=== PATIENT | female | born 1940 | race Caucasian/White ===

== ENCOUNTER 2017-01-26 09:37 | Inpatient (IN) | payer MEDICARE ==
[~2017-01-26] VITALS: Ht 160 cm; Wt 59.7 kg
[2017-01-26] MEDS ORDERED: CEFEPIME 2GM/50 ML (PMX) 50 ML IVPB STA (09:46)
[2017-01-26] MEDS ORDERED: SOD CHLORIDE 0.9% 1,000 ML IV STA ×2 (09:46)
[2017-01-26] MEDS ORDERED: VANCOMYCIN 1 GM (PMX) 250 ML IVPB ONE (10:00)
[2017-01-26] MEDS ORDERED: CITA-104 PO (10:23)
[2017-01-26 10:26] LABS: ADD SCAN DIFF NO
[2017-01-26] MEDS ORDERED: CLON0.5T4 PO (10:26)
[2017-01-26] MEDS ORDERED: ZOF8 PO (10:26)
[2017-01-26] MEDS ORDERED: OLAN2.5T4 PO (10:27)
[2017-01-26] MEDS ORDERED: PROC5TAB9 PO (10:28)
[2017-01-26] MEDS ORDERED: LITH150C6 PO (10:28)
[2017-01-26] MEDS ORDERED: LATA2.5D9 BOTH EYES (10:29)
[2017-01-26] MEDS ORDERED: DEXA4TAB PO (10:30)
[2017-01-26] MEDS ORDERED: UDLOM PO (10:30)
[2017-01-26] MEDS ORDERED: FAMO20TA18 PO (10:32)
[2017-01-26 10:36] LABS: ADD UMIC NO; UR ASCORBIC ACID NEGATIVE (NEGATIVE); UR BILIRUBIN (Dip) NEGATIVE (NEGATIVE); UR BLOOD (Dip) NEGATIVE (NEGATIVE); UR CLARITY CLEAR (CLEAR); UR COLOR YELLOW (YELLOW); UR GLUCOSE (Dip) NEGATIVE (NEGATIVE); UR KETONES (Dip) TRACE mg/dL (NEGATIVE); UR LEUKOCYTE ESTERASE (Dip) NEGATIVE Leu/ul (NEGATIVE); UR NITRITE (Dip) NEGATIVE (NEGATIVE); UR SPECIFIC GRAVITY (Dip) 1.016 (1.003-1.030); UR TOTAL PROTEIN (Dip) NEGATIVE (NEGATIVE); UR UROBILINOGEN (Dip) NEGATIVE (NEGATIVE)
[2017-01-26 10:37] LABS: BASOPHILS % 0.2 % (0.0-2.0); EOSINOPHILS # 0.1 10^3/ul (0.0-0.5); EOSINOPHILS % 0.5 % (0.0-7.0); HEMATOCRIT 35.7 % (37.0-47.0); HEMOGLOBIN 12.6 g/dl (12.0-16.0); LYMPHOCYTES # 1.2 10^3/ul (0.8-2.9); LYMPHOCYTES % 6.8 % (15.0-51.0); MEAN CORPUSCULAR HEMOGLOBIN 29.4 pg (29.0-33.0); MEAN CORPUSCULAR HGB CONC 35.3 g/dl (32.0-37.0); MEAN CORPUSCULAR VOLUME 83.2 fl (82.0-101.0); MEAN PLATELET VOLUME 9.9 fl (7.4-10.4); MONOCYTE # 1.4 10^3/ul (0.3-0.9); MONOCYTES % 7.5 % (0.0-11.0); NEUTROPHIL # 15.4 10^3/ul (1.6-7.5); NEUTROPHILS % 84.2 % (39.0-77.0); PLATELET COUNT 191 10^3/UL (140-415); RED BLOOD COUNT 4.29 10^6/ul (4.20-5.40); WHITE BLOOD COUNT 18.3 10^3/ul (4.8-10.8)
[2017-01-26 10:50] LABS: ALBUMIN 3.9 g/dl (3.3-4.9); ALBUMIN/GLOBULIN RATIO 1.5; BILIRUBIN,INDIRECT 0.5 mg/dl (0-1.1); BILIRUBIN,TOTAL 0.5 mg/dl (0.2-1.3); CALCIUM 9.6 mg/dl (8.4-10.2); CREATININE 0.9 mg/dl (0.44-1.00); TOTAL PROTEIN 6.5 g/dl (6.1-8.1)
[2017-01-26 10:55] LABS: INR 1.04; PROTIME 13.6 Sec (12.2-14.2); PT RATIO 1.1
--- NOTE | 2017-01-26 10:57 | RADRPT ---
PROCEDURE: CT Brain without contrast. CLINICAL INDICATION: Sepsis TECHNIQUE: A CT of the brain was performed on a see multidetector CT scanner utilizing axial imagi ng from the skull base through the vertex without IV contrast. Multiplanar reformatted images were made. Images were reviewed on a PACS workstation. The CTDIvol is 42 mGy and the DLP is to 720 mGyc m. COMPARISON: None FINDINGS: There is mild to moderate age appropriate diffuse cerebral volume loss with sulcal and ventricular d ilatation. No discrete extra-axial fluid collection or masses seen. Ventricles are in the midline and of normal contour and configuration. There is preservation of normal anderson-white discrimination. Scattered focal of diminished attenuation are seen in the white matter of both cerebral hemisphere s. No associated mass effect is present. There is no intracranial hemorrhage. Trace fluid is seen layering in the left sphenoid sinus. IMPRESSION: Age-appropriate atrophy. Mild white matter disease compatible with chronic small vessel ischemia. No intracranial hemorrhage or mass. .Tom Saha MD, MD Date Time Electronically viewed and signed by .Tom Saha MD, MD on 01/26/2017 10:56 .A/
[2017-01-26] MEDS ORDERED: POTASSIUM CHLORIDE (SR) 20 MEQ TAB PO STA ×2 (10:59→22:56)
[2017-01-26] MEDS ORDERED: POTASSIUM CHLORIDE 250 ML IVPB ONE ×2 (11:00→23:00)
[2017-01-26 11:01] LABS: TROPONIN-I 0.031 ng/ml (0.00-0.12)
--- NOTE | 2017-01-26 11:11 | RADRPT ---
PROCEDURE: Chest x-ray CLINICAL INDICATION: Shortness of breath TECHNIQUE: Chest single view COMPARISON: None FINDINGS: There is right IJ Port-A-Cath. The heart is normal in size. The pulmonary vessels are normal in ca liber. The lungs are clear. The costophrenic angles are sharp. The visualized bony thorax is unre markable. IMPRESSION: No acute cardiopulmonary disease. Mild atherosclerotic aortic calcification Right IJ Port-A-Cath RPTAT: HH .Tobi Owen MD, Date Time Electronically viewed and signed by .Tobi Owen MD, on 01/26/2017 11:11 .W/
[2017-01-26] MEDS ORDERED: ONDANSETRON 4 MG INJ IV PRN ×2 (11:30→13:00)
[2017-01-26] MEDS ORDERED: ACETAMINOPHEN 325 MG TAB PO PRN ×2 (11:30→13:00)
[2017-01-26] MEDS ORDERED: clonAZEPAM 0.5 MG TAB PO ONE (12:00)
--- NOTE | 2017-01-26 12:20 | ERA ---
ER Documentation Chief Complaint Date/Time DATE: 01/26/17 TIME: 12:19 Chief Complaint PT BIB friend for complaint of weakness, decreased apetite and weakness. HPI Patient is a 76-year-old female with breast cancer who presents with diarrhea. The patient has had "too much chemo". She had her first and only chemotherapy on January 06. She is due for it again tomorrow. However she has had "serious diarrhea" since then. She lives alone. Her friend came to see her yesterday and she was unable to eat or get around the house. The friend called the oncologist who said that she was likely dehydrated and needed to go to the emergency department for admission. She admits to a subjective fever. She has had multiple falls. She has drainage from her left eye from glaucoma. Her primary doctor is Dr. Caro and her oncologist is Dr. Nelson. ROS All systems reviewed and are negative except as per history of present illness. Medications Home Meds Reported Medications Famotidine* (Famotidine*) 20 Mg Tablet, 20 MG PO QHS, #30 TAB 01/26/17 Diphenoxylate Hcl-Atropine* (Lomotil*) 5 Ml Soln, 5 ML PO Q6H Y for DIARRHEA, ML 01/26/17 Dexamethasone* (Dexamethasone*) 4 Mg Tablet, 4 MG PO BID Y for chemo nausea, TAB 01/26/17 Latanoprost (Xalatan) 2.5 Ml Drops, 1 DROP BOTH EYES QHS, #1 BOTTLE 01/26/17 Prochlorperazine* (Prochlorperazine*) 5 Mg Tablet, 5 MG PO Q6 Y for NAUSEA, TAB 01/26/17 [place] Carbonate* ([place] Carbonate*) 150 Mg Capsule, 450 MG PO QHS, CAP 01/26/17 Olanzapine* (Zyprexa*) 2.5 Mg Tablet, 2.5 MG PO DAILY, #30 TAB 01/26/17 Clonazepam* (Clonazepam*) 0.5 Mg Tablet, 0.5 MG PO QHS Y for ANXIETY, TAB 01/26/17 Ondansetron Hcl* (Zofran*) 8 Mg Tab, 8 MG PO Q8 Y for NAUSEA AND/OR VOMITING, TAB Aleternating dose during and after chemo 01/26/17 Citalopram Hydrobromide* (Citalopram Hydrobromide*) 40 Mg Tablet, 40 MG PO DAILY , #30 TAB 01/26/17 Allergies Allergies: Coded Allergies: No Known Allergy (Unverified , 01/26/17) PMhx/Soc History of Surgery: Yes (Port-A -Cath ) Anesthesia Reaction: No Hx Neurological Disorder: No Hx Respiratory Disorders: No Hx Cardiac Disorders: No Hx Psychiatric Problems: Yes (depression, anxiety) Hx Miscellaneous Medical Probl: Yes (glacoma, Breast CA s/p chemo) Hx Alcohol Use: No Hx Substance Use: No Hx Tobacco Use: No Smoking Status: Never smoker FmHx Family History: No diabetes Physical Exam Vitals Vital Signs Date Time Temp Pulse Resp B/P Pulse Ox O2 Delivery O2 Flow Rate FiO2 01/26/17 09:57 98.1 90 18 140/66 98 Physical Exam Const: Moderate distress Head: Atraumatic Eyes: Discharge from the left eye with crusting ENT: Normal External Ears, Nose and Mouth. Neck: Full range of motion..~ No meningismus. Resp: Clear to auscultation bilaterally Cardio: Regular rate and rhythm, no murmurs Abd: Soft, non tender, non distended. Normal bowel sounds Skin: No petechiae or rashes Back: No midline or flank tenderness Ext: No cyanosis, or edema Neur: Awake but confused and weak Result Diagram: 01/26/17 1005 01/26/17 1005 Results 24 hrs Laboratory Tests Test 01/26/17 10:05 01/26/17 10:15 White Blood Count 18.310^3/ul Red Blood Count 4.2910^6/ul Hemoglobin 12.6g/dl Hematocrit 35.7% Mean Corpuscular Volume 83.2fl Mean Corpuscular Hemoglobin 29.4pg Mean Corpuscular Hemoglobin Concent 35.3g/dl Red Cell Distribution Width 14.0% Platelet Count 78175^3/UL Mean Platelet Volume 9.9fl Neutrophils % 84.2% Lymphocytes % 6.8% Monocytes % 7.5% Eosinophils % 0.5% Basophils % 0.2% Nucleated Red Blood Cells % 0.0/100WBC Neutrophils # 15.410^3/ul Lymphocytes # 1.210^3/ul Monocytes # 1.410^3/ul Eosinophils # 0.110^3/ul Basophils # 0.010^3/ul Nucleated Red Blood Cells # 0.010^3/ul Prothrombin Time 13.6Sec Prothrombin Time Ratio 1.1 INR International Normalized Ratio 1.04 Activated Partial Thromboplast Time 24.0Sec Sodium Level 140mmol/L Potassium Level 2.0mmol/L Chloride Level 105mmol/L Carbon Dioxide Level 27mmol/L Anion Gap 10 Blood Urea Nitrogen 21mg/dl Creatinine 0.90mg/dl Glucose Level 101mg/dl Lactic Acid Level 0.7mmol/L Calcium Level 9.6mg/dl Total Bilirubin 0.5mg/dl Direct Bilirubin 0.00mg/dl Indirect Bilirubin 0.5mg/dl Aspartate Amino Transf (AST/SGOT) 22IU/L Alanine Aminotransferase (ALT/SGPT) 35IU/L Alkaline Phosphatase 87IU/L Troponin I 0.031ng/ml Total Protein 6.5g/dl Albumin 3.9g/dl Globulin 2.60g/dl Albumin/Globulin Ratio 1.50 Urine Color YELLOW Urine Clarity CLEAR Urine pH 6.0 Urine Specific [place] 1.016 Urine Ketones TRACEmg/dL Urine Nitrite NEGATIVEmg/dL Urine Bilirubin NEGATIVEmg/dL Urine Urobilinogen NEGATIVEmg/dL Urine Leukocyte Esterase NEGATIVELeu/ul Urine Hemoglobin NEGATIVEmg/dL Urine Glucose NEGATIVEmg/dL Urine Total Protein NEGATIVEmg/dl Current Medications Medications (Trade) Dose Ordered Sig/Mayte Route PRN Reason Start Time Stop Time Status Last Admin Dose Admin Cefepime HCl 50 ml @ 100 mls/hr ONCE STAT IVPB 01/26/17 09:46 01/26/17 10:15 DC 01/26/17 11:03 Vancomycin HCl 250 ml @ 125 mls/hr ONCE ONCE IVPB 01/26/17 10:00 01/26/17 11:59 DC 01/26/17 11:37 Sodium Chloride 1,000 ml @ 1,000 mls/hr Q1H STAT IV 01/26/17 09:46 01/26/17 10:45 DC 01/26/17 11:02 Sodium Chloride 1,000 ml @ 1,000 mls/hr Q1H STAT IV 01/26/17 09:46 01/26/17 10:45 DC 01/26/17 11:03 Potassium Chloride (KCl 40 MEQ/250 ML NS) 250 ml @ 62.5 mls/hr ONCE ONCE IVPB 01/26/17 11:00 01/26/17 14:59 01/26/17 11:23 Potassium Chloride (Klor-Con 20) 40 meq ONCE STAT PO 01/26/17 10:59 01/26/17 11:00 DC 01/26/17 11:13 Ondansetron HCl (Zofran Inj) 4 mg ER BRIDGE PRN IV NAUSEA AND/OR VOMITING 01/26/17 11:30 01/27/17 11:29 Acetaminophen (Tylenol Tab) 650 mg ER BRIDGE PRN PO MILD PAIN/FEVER 01/26/17 11:30 01/27/17 11:29 Clonazepam (Klonopin) 0.25 mg ONCE ONCE PO 01/26/17 12:00 01/26/17 12:01 DC Procedures/MDM EKG read by me: Rate/Rhythm: Regular rate and rhythm at a rate of 85 Intervals: Prolonged QTC Impression: Prolonged QTC without signs of ischemia Patient is a 76-year-old female with breast cancer presents with significant diarrhea. She was found to have leukocytosis as well as profound hypokalemia. The patient was given IV potassium as well as potassium by mouth. The patient will be admitted to the care of Dr. Kunz from the panel team to a telemetry bed. She was covered with broad-spectrum antibiotics as she is immunosuppressed from chemotherapy. She will be admitted to a telemetry bed. At this point I doubt sepsis. Cultures are pending. Departure Diagnosis: Primary Impression: Acute weakness Additional Impressions: Diarrhea Qualified Code: R19.7 - Diarrhea, unspecified type Leukocytosis Qualified Code: D72.829 - Leukocytosis, unspecified type Hypokalemia Condition: Serious MORRO MATIAS MD Jan 26, 2017 12:20
[2017-01-26] MEDS ORDERED: PROCHLORPERAZINE 5 MG TAB PO PRN (13:00)
[2017-01-26] MEDS ORDERED: HYDROCODONE/APAP (5/325) TAB PO PRN (13:00)
[2017-01-26] MEDS ORDERED: DEXAMETHASONE 4 MG TAB PO PRN (13:00)
[2017-01-26] MEDS ORDERED: NACL 0.9% 3 ML SYG IV SCH (13:00)
[2017-01-26] MEDS ORDERED: ONDANSETRON 4 MG TAB PO PRN ×2 (13:00)
[2017-01-26 14:00] VITALS: TEMP 98.6
--- NOTE | 2017-01-26 14:40 | HP ---
Date/Time of Note Date/Time of Note DATE: 01/26/17 TIME: 14:33 Assessment/Plan VTE Prophylaxis VTE Prophylaxis Intervention: SCD's Assessment/Plan Assessment/Plan 76 yo F with stage 3 breast Ca on chemo admitted for encephalopathy, diarrhea, hypokalemia. Suspect diarrhea 2/2 Pertuzumab and that encepheloapthy and hypokalemia are 2/2 diarrhea. PLAN #diarrhea: check CDiff given frequent healthcare contact if negative start immodium #hypokalemia: replete aggressively #dehydration: though Cr wnl, BUN slightly elevated judicious fluid replacement #anxiety: cont home meds dispo: SW consult for HH per daughters request general diet DVT prophx FULL CODE HPI/ROS Admit Date/Time Admit Date/Time Hx of Present Illness 76 yo F with stage 3 breast ca currently on chemo presents with c/o altered mental status and falling at home x 1 day in the setting of several weeks of diarrhea. Per discussion with family, pt has been having diarrhea since her chemo started. No dark stool or blood in stool. For the past 2 days has been taking in less PO. No nausea or vomitting. No chest pain or SOB. I contacted pt's oncologist Dr Meg Nelson ([phone]) who stated this was a common side effect of the Pertuzumab element of pt's chemo regimen. No fevers, no chills, no dysuria. Pt also with yellow drainage from L eye and sclera erythema PMH/Family/Social Past Medical History breast ca, currently on chemo anxiety glaucoma Social History lives alone in the community Smoking Status: Never smoker Exam/Review of Systems Vital Signs Vitals Vital Signs Date Time Temp Pulse Resp B/P Pulse Ox O2 Delivery O2 Flow Rate FiO2 01/26/17 14:00 98.6 87 18 132/69 98 Exam Exam agitated, afraid, sitting up in bed L eye with injected sclera and copious yellowish discharge, mild yellowish discharge to R eye tonopen used to check L eye pressure: 20 mm Hg no mrg lungs clear abd soft no rashes, +bruising no le edema responds to questions appropriately R chest port clean/dry/intact Labs Result Diagram: 01/26/17 1005 01/26/17 1005 Medications Medications Current Medications Potassium Chloride (KCl 40 MEQ/250 ML NS) 250 ml @ 62.5 mls/hr ONCE ONCE IVPB Last administered on 01/26/17t 11:23; Admin Dose 62.5 MLS/HR; Start 01/26/17 at 11:00; Stop 01/26/17 at 14:59 Ondansetron HCl (Zofran Tab) 4 mg Q6H PRN PO NAUSEA AND/OR VOMITING; Start at 13:00 Ondansetron HCl (Zofran Inj) 4 mg Q6H PRN IV NAUSEA AND/OR VOMITING; Start at 13:00 Acetaminophen (Tylenol Tab) 650 mg Q6H PRN PO PAIN LEVEL 1-3 OR FEVER; Start at 13:00 Acetaminophen/ Hydrocodone Bitart ([place] (5/325)) 1 tab Q6H PRN PO MODERATE PAIN LEVEL 4-6; Start 01/26/17 at 13:00 Enoxaparin Sodium (Lovenox) 40 mg DAILY SC ; Start 01/27/17 at 09:00 Citalopram Hydrobromide (Celexa) 40 mg DAILY PO ; Start 01/27/17 at 09:00 Clonazepam (Klonopin) 0.5 mg QHS PRN PO ANXIETY; Start 01/26/17 at 13:00 Dexamethasone (Decadron) 4 mg BID PRN PO chemo nausea; Start 01/26/17 at 13:00 Famotidine (Pepcid) 20 mg QHS PO ; Start 01/26/17 at 21:00 Latanoprost (Xalatan) 1 drop QHS BOTH EYES ; Start 01/26/17 at 21:00 [place] Carbonate ([place] Carbonate) 450 mg QHS PO ; Start 01/26/17 at 21:00 Olanzapine (Zyprexa) 2.5 mg DAILY PO ; Start 01/27/17 at 09:00 Ondansetron HCl (Zofran Tab) 8 mg Q8 PRN PO NAUSEA AND/OR VOMITING; Start 01/26 at 13:00 Prochlorperazine (Compazine) 5 mg Q6 PRN PO NAUSEA; Start 01/26/17 at 13:00 Procedures Procedures labs reviewed. UA benign K very low MARAH SALGADO MD Jan 26, 2017 14:40
[2017-01-26 15:11] VITALS: PULSE 82
[2017-01-26 15:37] VITALS: Ht 160 cm; Wt 59.7 kg
[2017-01-26 16:38] VITALS: PULSE 84
[2017-01-26 16:42] VITALS: BP 133/60; RESP 19
[2017-01-26 19:48] VITALS: BP 134/60; RESP 19
[2017-01-26] MEDS: clonAZEPAM 0.5 MG TAB PO PRN (20:40)
[2017-01-26] MEDS: FAMOTIDINE 20 MG TAB PO SCH (20:40)
[2017-01-26 20:46] VITALS: PULSE 87
[2017-01-26] MEDS: LATANOPROST 0.005% 2.5 ML OPH BOTH EYES SCH (21:00)
[2017-01-26 22:31] LABS: CALCIUM 8.4 mg/dl (8.4-10.2); CREATININE 0.84 mg/dl (0.44-1.00)
[2017-01-26] MEDS: LITHIUM CARBONATE 150 MG CAP PO SCH (22:33)
[2017-01-26 22:40] LABS: POTASSIUM 2.3 mmol/L (3.5-5.1)
[2017-01-27] VITALS (11 sets, daily range): BP systolic 121–145; BP diastolic 58–77; PULSE 60–90; RESP 18–20
[2017-01-27] MEDS: LATANOPROST 0.005% 2.5 ML OPH BOTH EYES SCH ×2 (00:33→21:17)
[2017-01-27 07:53] LABS: ADD SCAN DIFF NO
[2017-01-27 08:02] LABS: BASOPHILS % 0.2 % (0.0-2.0); EOSINOPHILS # 0.2 10^3/ul (0.0-0.5); EOSINOPHILS % 1.1 % (0.0-7.0); HEMATOCRIT 35.1 % (37.0-47.0); HEMOGLOBIN 12.1 g/dl (12.0-16.0); LYMPHOCYTES # 0.9 10^3/ul (0.8-2.9); LYMPHOCYTES % 5.7 % (15.0-51.0); MEAN CORPUSCULAR HEMOGLOBIN 28.8 pg (29.0-33.0); MEAN CORPUSCULAR HGB CONC 34.5 g/dl (32.0-37.0); MEAN CORPUSCULAR VOLUME 83.6 fl (82.0-101.0); MEAN PLATELET VOLUME 9.9 fl (7.4-10.4); MONOCYTE # 1.3 10^3/ul (0.3-0.9); MONOCYTES % 7.8 % (0.0-11.0); NEUTROPHIL # 13.8 10^3/ul (1.6-7.5); NEUTROPHILS % 83.9 % (39.0-77.0); PLATELET COUNT 163 10^3/UL (140-415); RED CELL DISTRIBUTION WIDTH 14.5 % (11.5-14.5); WHITE BLOOD COUNT 16.4 10^3/ul (4.8-10.8)
[2017-01-27 08:15] LABS: CALCIUM 9.4 mg/dl (8.4-10.2); CREATININE 0.76 mg/dl (0.44-1.00); MAGNESIUM 2.2 mg/dl (1.7-2.5); PHOSPHORUS 1.3 mg/dl (2.5-4.9); POTASSIUM 3.5 mmol/L (3.5-5.1)
[2017-01-27] MEDS: OLANZAPINE 2.5 MG TAB PO SCH (08:42)
[2017-01-27] MEDS: CITALOPRAM 20 MG TAB PO SCH (08:42)
[2017-01-27] MEDS: ENOXAPARIN 40 MG/0.4 ML SYG SC SCH (08:52)
--- NOTE | 2017-01-27 08:55 | PN ---
Date/Time of Note Date/Time of Note DATE: 01/27/17 TIME: 08:53 Assessment/Plan VTE Prophylaxis VTE Prophylaxis Intervention: SCD's Lines/Catheters IV Catheter Type (from [facility]): PORT CATH Urinary Cath still in place: No Assessment/Plan Assessment/Plan 76 yo F with stage 3 breast Ca on chemo admitted for diarrhea, hypokalemia, confusion. Suspect diarrhea iatrogenic from chemo regimen v CDiff and that confusision 2/2 electrolyte derangement and dehydration. PLAN #diarrhea: check CDiff given frequent healthcare contact if negative start immodium #hypokalemia: replete aggressively #encephalopathy: suspect 2/2 above and toxic/metabolic in origin #anxiety: cont home meds dispo: SW consult for HH per daughters request general diet DVT prophx FULL CODE Subjective 24 Hr Interval Summary Free Text/Dictation Pt still slightly confused this AM. Asking to see "the baby." Per nursing, only required cleaning once overnight, stool quite mucoid. Exam/Review of Systems Vital Signs Vitals Vital Signs Date Time Temp Pulse Resp B/P Pulse Ox O2 Delivery O2 Flow Rate FiO2 01/27/17 08:00 85 01/27/17 07:15 98.5 20 130/77 98 Intake and Output 01/26/17 01/26/17 01/27/17 15:00 23:00 07:00 Intake Total 2300 ml 100 ml 300 ml Balance 2300 ml 100 ml 300 ml Exam L eye with less drainage no mrg R chest port c/d/i lungs clear abd soft no le edema Results Result Diagram: 01/27/17 0631 01/27/17 0631 Results 24 hrs Laboratory Tests Test 01/26/17 10:05 01/26/17 10:15 01/26/17 15:16 01/26/17 17:09 White Blood Count 18.3 H Red Blood Count 4.29 Hemoglobin 12.6 Hematocrit 35.7 L Mean Corpuscular Volume 83.2 Mean Corpuscular Hemoglobin 29.4 Mean Corpuscular Hemoglobin Concent 35.3 Red Cell Distribution Width 14.0 Platelet Count 191 Mean Platelet Volume 9.9 Neutrophils % 84.2 H Lymphocytes % 6.8 L Monocytes % 7.5 Eosinophils % 0.5 Basophils % 0.2 Nucleated Red Blood Cells % 0.0 Neutrophils # 15.4 H Lymphocytes # 1.2 Monocytes # 1.4 H Eosinophils # 0.1 Basophils # 0.0 Nucleated Red Blood Cells # 0.0 Prothrombin Time 13.6 Prothrombin Time Ratio 1.1 INR International Normalized Ratio 1.04 Activated Partial Thromboplast Time 24.0 L Sodium Level 140 Potassium Level 2.0 *L Chloride Level 105 Carbon Dioxide Level 27 Anion Gap 10 Blood Urea Nitrogen 21 H Creatinine 0.90 Glucose Level 101 Lactic Acid Level 0.7 0.8 0.7 Calcium Level 9.6 Magnesium Level 2.4 Total Bilirubin 0.5 Direct Bilirubin 0.00 Indirect Bilirubin 0.5 Aspartate Amino Transf (AST/SGOT) 22 Alanine Aminotransferase (ALT/SGPT) 35 Alkaline Phosphatase 87 Troponin I 0.031 Total Protein 6.5 Albumin 3.9 Globulin 2.60 Albumin/Globulin Ratio 1.50 Urine Color YELLOW Urine Clarity CLEAR Urine pH 6.0 Urine Specific [place] 1.016 Urine Ketones TRACE A Urine Nitrite NEGATIVE Urine Bilirubin NEGATIVE Urine Urobilinogen NEGATIVE Urine Leukocyte Esterase NEGATIVE Urine Hemoglobin NEGATIVE Urine Glucose NEGATIVE Urine Total Protein NEGATIVE Test 01/26/17 21:47 01/27/17 06:31 Sodium Level 142 148 H Potassium Level 2.3 *L 3.5 Chloride Level 113 H 118 H Carbon Dioxide Level 26 23 Anion Gap 5 L 11 Blood Urea Nitrogen 14 11 Creatinine 0.84 0.76 Glucose Level 106 112 Calcium Level 8.4 9.4 Magnesium Level 2.2 2.2 White Blood Count 16.4 H Red Blood Count 4.20 Hemoglobin 12.1 Hematocrit 35.1 L Mean Corpuscular Volume 83.6 Mean Corpuscular Hemoglobin 28.8 L Mean Corpuscular Hemoglobin Concent 34.5 Red Cell Distribution Width 14.5 Platelet Count 163 Mean Platelet Volume 9.9 Neutrophils % 83.9 H Lymphocytes % 5.7 L Monocytes % 7.8 Eosinophils % 1.1 Basophils % 0.2 Nucleated Red Blood Cells % 0.0 Neutrophils # 13.8 H Lymphocytes # 0.9 Monocytes # 1.3 H Eosinophils # 0.2 Basophils # 0.0 Nucleated Red Blood Cells # 0.0 Phosphorus Level 1.3 L Medications Medications Current Medications Ondansetron HCl (Zofran Tab) 4 mg Q6H PRN PO NAUSEA AND/OR VOMITING; Start at 13:00 Ondansetron HCl (Zofran Inj) 4 mg Q6H PRN IV NAUSEA AND/OR VOMITING; Start at 13:00 Acetaminophen (Tylenol Tab) 650 mg Q6H PRN PO PAIN LEVEL 1-3 OR FEVER; Start at 13:00 Acetaminophen/ Hydrocodone Bitart ([place] (5/325)) 1 tab Q6H PRN PO MODERATE PAIN LEVEL 4-6; Start 01/26/17 at 13:00 Enoxaparin Sodium (Lovenox) 40 mg DAILY SC Last administered on 01/27/17 08:52 ; Admin Dose 40 MG; Start 01/27/17 at 09:00 Citalopram Hydrobromide (Celexa) 40 mg DAILY PO Last administered on 01/27/17 08:42; Admin Dose 40 MG; Start 01/27/17 at 09:00 Clonazepam (Klonopin) 0.5 mg QHS PRN PO ANXIETY Last administered on 01/26/17 20:40; Admin Dose 0.5 MG; Start 01/26/17 at 13:00 Dexamethasone (Decadron) 4 mg BID PRN PO chemo nausea; Start 01/26/17 at 13:00 Famotidine (Pepcid) 20 mg QHS PO Last administered on 01/26/17 20:40; Admin Dose 20 MG; Start 01/26/17 at 21:00 Latanoprost (Xalatan) 1 drop QHS BOTH EYES Last administered on 01/27/17 00:33 ; Admin Dose 1 DROP; Start 01/26/17 at 21:00 [place] Carbonate ([place] Carbonate) 450 mg QHS PO Last administered on 22:33; Admin Dose 450 MG; Start 01/26/17 at 21:00 Olanzapine (Zyprexa) 2.5 mg DAILY PO Last administered on 01/27/17 08:42; Admin Dose 2.5 MG; Start 01/27/17 at 09:00 Ondansetron HCl (Zofran Tab) 8 mg Q8 PRN PO NAUSEA AND/OR VOMITING; Start 01/26 at 13:00 Prochlorperazine (Compazine) 5 mg Q6 PRN PO NAUSEA; Start 01/26/17 at 13:00 MARAH SALGADO MD Jan 27, 2017 08:54
[2017-01-27] MEDS: DEXTROSE 5% 1,000 ML IV SCH ×2 (10:00→23:01)
[2017-01-27 16:29] LABS: CALCIUM 9.3 mg/dl (8.4-10.2); CREATININE 0.74 mg/dl (0.44-1.00); POTASSIUM 3.3 mmol/L (3.5-5.1)
[2017-01-27] MEDS ORDERED: SOD PHOS MONO/DIBAS 250 MG TAB PO ONE (20:30)
[2017-01-27] MEDS: LITHIUM CARBONATE 150 MG CAP PO SCH (21:17)
[2017-01-27] MEDS: FAMOTIDINE 20 MG TAB PO SCH (21:17)
[2017-01-27] MEDS ORDERED: POTASSIUM CHLORIDE 250 ML IVPB ONE (23:30)
[2017-01-28 05:54] LABS: CALCIUM 9.1 mg/dl (8.4-10.2); CREATININE 0.7 mg/dl (0.44-1.00); POTASSIUM 3.5 mmol/L (3.5-5.1)
[2017-01-28 07:25] VITALS: BP 144/69; RESP 19
[2017-01-28] MEDS: OLANZAPINE 2.5 MG TAB PO SCH (09:00)
[2017-01-28] MEDS: CITALOPRAM 20 MG TAB PO SCH (09:38)
[2017-01-28] MEDS: ENOXAPARIN 40 MG/0.4 ML SYG SC SCH (09:41)
--- NOTE | 2017-01-28 15:14 | PN ---
Date/Time of Note Date/Time of Note DATE: 01/28/17 TIME: 15:13 Assessment/Plan VTE Prophylaxis VTE Prophylaxis Intervention: SCD's Lines/Catheters IV Catheter Type (from Nrs): portacath Urinary Cath still in place: No Assessment/Plan Assessment/Plan 76 yo F with stage 3 breast Ca on chemo admitted for diarrhea, hypokalemia, confusion. Suspect diarrhea iatrogenic from chemo regimen and confusion 2/2 electrolyte derangement and dehydration. Now with hypernatremia PLAN #hypernatremia: insensible losses in setting of poor PO v DI. Pt clinically euvolemic check urine osms and urine sodium inc D5W infusion right slightly cannot r/o nephrogenic DI from lithium. check lithium level #diarrhea: resolved #hypokalemia: replete PRN #encephalopathy: suspect 2/2 above and toxic/metabolic in origin #anxiety: cont home meds dispo: SW consult for HH , PT eval general diet DVT prophx FULL CODE Subjective 24 Hr Interval Summary Free Text/Dictation Doing a little better. Has not been trying to get out of bed today. Knew she was in the hospital but did not know the month or year states diarrhea has improved Exam/Review of Systems Vital Signs Vitals Vital Signs Date Time Temp Pulse Resp B/P Pulse Ox O2 Delivery O2 Flow Rate FiO2 01/28/17 07:25 97.0 61 19 144/69 98 01/27/17 20:00 Room Air Intake and Output 01/27/17 01/27/17 01/28/17 15:00 23:00 07:00 Intake Total 720 ml 580 ml Balance 720 ml 580 ml Exam nad, sitting up in bed less drainage from L eye no mrg lungs clear abd soft no rashes cultures reviewed Na 148 CDiff negative Results Result Diagram: 01/27/17 0631 01/28/17 0431 Results 24 hrs Laboratory Tests Test 01/27/17 16:05 01/28/17 04:31 Sodium Level 147 H 148 H Potassium Level 3.3 L 3.5 Chloride Level 116 H 118 H Carbon Dioxide Level 23 25 Anion Gap 11 9 Blood Urea Nitrogen 10 10 Creatinine 0.74 0.70 Glucose Level 133 118 Calcium Level 9.3 9.1 Magnesium Level 2.2 2.0 Medications Medications Current Medications Ondansetron HCl (Zofran Tab) 4 mg Q6H PRN PO NAUSEA AND/OR VOMITING; Start at 13:00 Ondansetron HCl (Zofran Inj) 4 mg Q6H PRN IV NAUSEA AND/OR VOMITING; Start at 13:00 Acetaminophen (Tylenol Tab) 650 mg Q6H PRN PO PAIN LEVEL 1-3 OR FEVER; Start at 13:00 Acetaminophen/ Hydrocodone Bitart ([place] (5/325)) 1 tab Q6H PRN PO MODERATE PAIN LEVEL 4-6; Start 01/26/17 at 13:00 Enoxaparin Sodium (Lovenox) 40 mg DAILY SC Last administered on 01/28/17 09:41 ; Admin Dose 40 MG; Start 01/27/17 at 09:00 Citalopram Hydrobromide (Celexa) 40 mg DAILY PO Last administered on 01/28/17 09:38; Admin Dose 40 MG; Start 01/27/17 at 09:00 Clonazepam (Klonopin) 0.5 mg QHS PRN PO ANXIETY Last administered on 01/26/17 20:40; Admin Dose 0.5 MG; Start 01/26/17 at 13:00 Dexamethasone (Decadron) 4 mg BID PRN PO chemo nausea; Start 01/26/17 at 13:00 Famotidine (Pepcid) 20 mg QHS PO Last administered on 01/27/17 21:17; Admin Dose 20 MG; Start 01/26/17 at 21:00 Latanoprost (Xalatan) 1 drop QHS BOTH EYES Last administered on 01/27/17 21:17 ; Admin Dose 1 DROP; Start 01/26/17 at 21:00 [place] Carbonate ([place] Carbonate) 450 mg QHS PO Last administered on 21:17; Admin Dose 450 MG; Start 01/26/17 at 21:00 Olanzapine (Zyprexa) 2.5 mg DAILY PO Last administered on 01/27/17 08:42; Admin Dose 2.5 MG; Start 01/27/17 at 09:00 Ondansetron HCl (Zofran Tab) 8 mg Q8 PRN PO NAUSEA AND/OR VOMITING; Start 01/26 at 13:00 Prochlorperazine 5 mg 5 mg Q6 PRN PO NAUSEA; Start 01/26/17 at 13:00 Dextrose (D5W) 1,000 ml @ 100 mls/hr Q10H IV Last administered on 01/27/17t 23 :01; Admin Dose 50 MLS/HR; Start 01/27/17 at 09:00 MARAH SALGADO MD Jan 28, 2017 15:14
[2017-01-28 17:16] LABS: CALCIUM 8.8 mg/dl (8.4-10.2); CREATININE 0.7 mg/dl (0.44-1.00); POTASSIUM 3.1 mmol/L (3.5-5.1)
[2017-01-28] MEDS ORDERED: POTASSIUM CHLORIDE (SR) 20 MEQ TAB PO STA (18:25)
[2017-01-28] MEDS ORDERED: ERYTHROMYCIN 1 GM OPH OINT LEFT EYE ONE (18:30)
[2017-01-28] MEDS ORDERED: POTASSIUM CHLORIDE 20 MEQ POWDER FOR ORAL SOLN PO SCH (20:00)
[2017-01-28 20:59] VITALS: BP 160/70; RESP 16
[2017-01-28] MEDS: DEXTROSE 5% 1,000 ML IV SCH (21:24)
[2017-01-28] MEDS: FAMOTIDINE 20 MG TAB PO SCH (21:24)
[2017-01-28] MEDS: LITHIUM CARBONATE 150 MG CAP PO SCH (21:25)
[2017-01-28] MEDS: LATANOPROST 0.005% 2.5 ML OPH BOTH EYES SCH (21:25)
[2017-01-28 22:00] VITALS: BP 145/72
[2017-01-29] MEDS: DEXTROSE 5% 1,000 ML IV SCH ×2 (04:46→08:32)
[2017-01-29 06:02] LABS: CALCIUM 8.9 mg/dl (8.4-10.2); CREATININE 0.71 mg/dl (0.44-1.00); POTASSIUM 3.4 mmol/L (3.5-5.1)
[2017-01-29 07:49] VITALS: BP 182/110; RESP 18
[2017-01-29 08:04] VITALS: BP 177/86; PULSE 85
[2017-01-29] MEDS ORDERED: POTASSIUM CHLORIDE (SR) 20 MEQ TAB PO STA (09:18)
[2017-01-29] MEDS: OLANZAPINE 2.5 MG TAB PO SCH (09:19)
[2017-01-29] MEDS: CITALOPRAM 20 MG TAB PO SCH (09:20)
[2017-01-29] MEDS: ENOXAPARIN 40 MG/0.4 ML SYG SC SCH (09:22)
--- NOTE | 2017-01-29 10:25 | PN ---
Date/Time of Note Date/Time of Note DATE: 01/29/17 TIME: 10:24 Assessment/Plan VTE Prophylaxis VTE Prophylaxis Intervention: SCD's Lines/Catheters IV Catheter Type (from Nrsg): port-A-cath Urinary Cath still in place: No Assessment/Plan Assessment/Plan 76 yo F with stage 3 breast Ca on chemo admitted for diarrhea, hypokalemia, confusion. Suspect diarrhea iatrogenic from chemo regimen and confusion 2/2 electrolyte derangement and dehydration. Dehydration, diarrhea, electrolyte derangement resolved. Now with delirium/toxic metabolic encephalopathy PLAN #encephalopathy/delirium: NH3, TSH, [place] nl. Head CT on admission nl -repeat UA to eval for infection though admission UA pristine -called pt's home pharmacy and psych meds doses varified though pt recently provided option of decreasing Zyprexa to 0.5 tabs daily, will decrease #hypernatremia: resolved. stop IVFs #diarrhea: resolved #hypokalemia: replete PRN #anxiety: cont home meds dispo: SW consult for HH , PT eval general diet DVT prophx FULL CODE Subjective 24 Hr Interval Summary Free Text/Dictation Still calm but also still delirious Exam/Review of Systems Vital Signs Vitals Vital Signs Date Time Temp Pulse Resp B/P Pulse Ox O2 Delivery O2 Flow Rate FiO2 01/29/17 08:04 85 177/86 01/29/17 07:49 98.1 18 96 01/27/17 20:00 Room Air Intake and Output 01/28/17 01/28/17 01/29/17 15:00 23:00 07:00 Intake Total 1000 ml 940 ml Output Total 500 ml Balance 1000 ml 440 ml Exam nad, laying down in bed no mrg lungs clear abd soft no rashes labs reviewed. Na now nl, K slightly low Results Result Diagram: 01/27/17 0631 01/29/17 0430 Results 24 hrs Laboratory Tests Test 01/28/17 16:33 01/29/17 04:30 01/29/17 06:30 Sodium Level 142 140 Potassium Level 3.1 L 3.4 L Chloride Level 112 H 109 Carbon Dioxide Level 28 26 Anion Gap 5 L 8 Blood Urea Nitrogen 9 10 Creatinine 0.70 0.71 Glucose Level 110 128 Calcium Level 8.8 8.9 [place] Level 0.9 Urine Osmolality 367 Urine Random Sodium 108 H Medications Medications Current Medications Ondansetron HCl (Zofran Tab) 4 mg Q6H PRN PO NAUSEA AND/OR VOMITING; Start at 13:00 Ondansetron HCl (Zofran Inj) 4 mg Q6H PRN IV NAUSEA AND/OR VOMITING; Start at 13:00 Acetaminophen (Tylenol Tab) 650 mg Q6H PRN PO PAIN LEVEL 1-3 OR FEVER; Start at 13:00 Acetaminophen/ Hydrocodone Bitart ([place] (5/325)) 1 tab Q6H PRN PO MODERATE PAIN LEVEL 4-6; Start 01/26/17 at 13:00 Enoxaparin Sodium (Lovenox) 40 mg DAILY SC Last administered on 01/29/17 09:22 ; Admin Dose 40 MG; Start 01/27/17 at 09:00 Citalopram Hydrobromide (Celexa) 40 mg DAILY PO Last administered on 01/29/17 09:20; Admin Dose 40 MG; Start 01/27/17 at 09:00 Clonazepam (Klonopin) 0.5 mg QHS PRN PO ANXIETY Last administered on 01/26/17 20:40; Admin Dose 0.5 MG; Start 01/26/17 at 13:00 Famotidine (Pepcid) 20 mg QHS PO Last administered on 01/28/17 21:24; Admin Dose 20 MG; Start 01/26/17 at 21:00 Latanoprost (Xalatan) 1 drop QHS BOTH EYES Last administered on 01/28/17 21:25 ; Admin Dose 1 DROP; Start 01/26/17 at 21:00 [place] Carbonate ([place] Carbonate) 450 mg QHS PO Last administered on 21:25; Admin Dose 450 MG; Start 01/26/17 at 21:00 Olanzapine (Zyprexa) 2.5 mg DAILY PO Last administered on 01/29/17 09:19; Admin Dose 2.5 MG; Start 01/27/17 at 09:00 Ondansetron HCl (Zofran Tab) 8 mg Q8 PRN PO NAUSEA AND/OR VOMITING; Start 01/26 at 13:00 Prochlorperazine (Compazine) 5 mg Q6 PRN PO NAUSEA; Start 01/26/17 at 13:00 MARAH SALGADO MD Jan 29, 2017 10:25
[2017-01-29 12:00] VITALS: BP 148/78; PULSE 82
[2017-01-29 15:37] LABS: ADD UMIC YES; UR ASCORBIC ACID NEGATIVE (NEGATIVE); UR BILIRUBIN (Dip) NEGATIVE (NEGATIVE); UR BLOOD (Dip) 1+ mg/dL (NEGATIVE); UR CLARITY CLEAR (CLEAR); UR COLOR YELLOW (YELLOW); UR GLUCOSE (Dip) NEGATIVE (NEGATIVE); UR KETONES (Dip) NEGATIVE (NEGATIVE); UR LEUKOCYTE ESTERASE (Dip) NEGATIVE Leu/ul (NEGATIVE); UR NITRITE (Dip) NEGATIVE (NEGATIVE); UR RBC 3 /HPF (0-5); UR TOTAL PROTEIN (Dip) NEGATIVE (NEGATIVE); UR UROBILINOGEN (Dip) NEGATIVE (NEGATIVE)
[2017-01-29 17:03] LABS: BASOPHILS % 0.1 % (0.0-2.0); EOSINOPHILS # 0.8 10^3/ul (0.0-0.5); HEMATOCRIT 37.8 % (37.0-47.0); LYMPHOCYTES # 1.7 10^3/ul (0.8-2.9); LYMPHOCYTES % 12.9 % (15.0-51.0); MEAN CORPUSCULAR HEMOGLOBIN 29.3 pg (29.0-33.0); MEAN CORPUSCULAR HGB CONC 34.4 g/dl (32.0-37.0); MEAN CORPUSCULAR VOLUME 85.1 fl (82.0-101.0); MEAN PLATELET VOLUME 10.4 fl (7.4-10.4); MONOCYTE # 1.4 10^3/ul (0.3-0.9); NEUTROPHIL # 9.5 10^3/ul (1.6-7.5); NEUTROPHILS % 70.2 % (39.0-77.0); PLATELET COUNT 174 10^3/UL (140-415); RED BLOOD COUNT 4.44 10^6/ul (4.20-5.40); RED CELL DISTRIBUTION WIDTH 14.6 % (11.5-14.5); WHITE BLOOD COUNT 13.5 10^3/ul (4.8-10.8)
[2017-01-29 17:04] LABS: ADD SCAN DIFF NO
[2017-01-29 17:24] LABS: CALCIUM 9.3 mg/dl (8.4-10.2); CREATININE 0.69 mg/dl (0.44-1.00); POTASSIUM 3.8 mmol/L (3.5-5.1)
[2017-01-29 19:59] VITALS: BP 156/70; RESP 19
[2017-01-29] MEDS: FAMOTIDINE 20 MG TAB PO SCH (20:12)
[2017-01-29] MEDS: LITHIUM CARBONATE 150 MG CAP PO SCH (20:12)
[2017-01-29] MEDS: LATANOPROST 0.005% 2.5 ML OPH BOTH EYES SCH (20:12)
[2017-01-30 06:26] LABS: MAGNESIUM 2.1 mg/dl (1.7-2.5); PHOSPHORUS 2.7 mg/dl (2.5-4.9)
[2017-01-30 06:29] LABS: CALCIUM 9.3 mg/dl (8.4-10.2); CREATININE 0.72 mg/dl (0.44-1.00); POTASSIUM 4.3 mmol/L (3.5-5.1)
[2017-01-30 07:55] VITALS: BP 159/78; RESP 18
[2017-01-30] MEDS: CITALOPRAM 20 MG TAB PO SCH (09:06)
[2017-01-30] MEDS: OLANZAPINE 2.5 MG TAB PO SCH (09:06)
[2017-01-30] MEDS: ENOXAPARIN 40 MG/0.4 ML SYG SC SCH (09:13)
--- NOTE | 2017-01-30 12:12 | PN ---
Date/Time of Note Date/Time of Note DATE: 01/30/17 TIME: 12:11 Assessment/Plan VTE Prophylaxis VTE Prophylaxis Intervention: SCD's Lines/Catheters IV Catheter Type (from Nrs): portacath Urinary Cath still in place: No Assessment/Plan Assessment/Plan 76 yo F with stage 3 breast Ca on chemo admitted for diarrhea, hypokalemia, confusion. Suspect diarrhea iatrogenic from chemo regimen and confusion 2/2 electrolyte derangement and dehydration. Dehydration, diarrhea, electrolyte derangement resolved. Now with delirium/toxic metabolic encephalopathy which is slowly resolving PLAN #encephalopathy/delirium: NH3, TSH, [place] nl. Head CT on admission nl -repeat UA also pristine -called pt's home pharmacy and psych meds doses verified though pt recently provided option of decreasing Zyprexa to 0.5 tabs daily-->decrease made 6.30 #hypernatremia: resolved. stopped IVFs #diarrhea: resolved #hypokalemia: replete PRN #anxiety: cont home meds dispo: SW consult for HH , PT eval general diet DVT prophx FULL CODE Subjective 24 Hr Interval Summary Free Text/Dictation lytes stable off abx. Today knew the year and the season which is an improvement from yesterday Exam/Review of Systems Vital Signs Vitals Vital Signs Date Time Temp Pulse Resp B/P Pulse Ox O2 Delivery O2 Flow Rate FiO2 01/30/17 07:55 98.5 73 18 159/78 96 01/27/17 20:00 Room Air Intake and Output 01/29/17 01/29/17 01/30/17 15:00 23:00 07:00 Intake Total 500 ml 630 ml 400 ml Balance 500 ml 630 ml 400 ml Exam nad, sitting up in bed L eye erythema almost fully resolved no mrg lungs clear abd soft ChemP reviewed Results Result Diagram: 01/29/17 1605 01/30/17 0455 Results 24 hrs Laboratory Tests Test 01/29/17 16:05 01/30/17 04:55 01/30/17 05:00 White Blood Count 13.5 H Red Blood Count 4.44 Hemoglobin 13.0 Hematocrit 37.8 Mean Corpuscular Volume 85.1 Mean Corpuscular Hemoglobin 29.3 Mean Corpuscular Hemoglobin Concent 34.4 Red Cell Distribution Width 14.6 H Platelet Count 174 Mean Platelet Volume 10.4 Neutrophils % 70.2 Lymphocytes % 12.9 L Monocytes % 10.0 Eosinophils % 6.0 Basophils % 0.1 Nucleated Red Blood Cells % 0.0 Neutrophils # 9.5 H Lymphocytes # 1.7 Monocytes # 1.4 H Eosinophils # 0.8 H Basophils # 0.0 Nucleated Red Blood Cells # 0.0 Sodium Level 138 141 Potassium Level 3.8 4.3 Chloride Level 105 109 Carbon Dioxide Level 27 29 Anion Gap 10 7 L Blood Urea Nitrogen 10 11 Creatinine 0.69 0.72 Glucose Level 130 110 Calcium Level 9.3 9.3 Phosphorus Level 2.7 Magnesium Level 2.1 Medications Medications Current Medications Ondansetron HCl (Zofran Tab) 4 mg Q6H PRN PO NAUSEA AND/OR VOMITING; Start at 13:00 Ondansetron HCl (Zofran Inj) 4 mg Q6H PRN IV NAUSEA AND/OR VOMITING; Start at 13:00 Acetaminophen (Tylenol Tab) 650 mg Q6H PRN PO PAIN LEVEL 1-3 OR FEVER; Start at 13:00 Acetaminophen/ Hydrocodone Bitart ([place] (5/325)) 1 tab Q6H PRN PO MODERATE PAIN LEVEL 4-6; Start 01/26/17 at 13:00 Enoxaparin Sodium (Lovenox) 40 mg DAILY SC Last administered on 01/30/17 09:13 ; Admin Dose 40 MG; Start 01/27/17 at 09:00 Citalopram Hydrobromide (Celexa) 40 mg DAILY PO Last administered on 01/30/17 09:06; Admin Dose 40 MG; Start 01/27/17 at 09:00 Clonazepam (Klonopin) 0.5 mg QHS PRN PO ANXIETY Last administered on 01/26/17 20:40; Admin Dose 0.5 MG; Start 01/26/17 at 13:00 Famotidine (Pepcid) 20 mg QHS PO Last administered on 01/29/17 20:12; Admin Dose 20 MG; Start 01/26/17 at 21:00 Latanoprost (Xalatan) 1 drop QHS BOTH EYES Last administered on 01/29/17 20:12 ; Admin Dose 1 DROP; Start 01/26/17 at 21:00 [place] Carbonate ([place] Carbonate) 450 mg QHS PO Last administered on 20:12; Admin Dose 450 MG; Start 01/26/17 at 21:00 Ondansetron HCl (Zofran Tab) 8 mg Q8 PRN PO NAUSEA AND/OR VOMITING; Start 01/26 at 13:00 Prochlorperazine (Compazine) 5 mg Q6 PRN PO NAUSEA; Start 01/26/17 at 13:00 Olanzapine (Zyprexa) 1.25 mg DAILY PO Last administered on 01/30/17 09:06; Admin Dose 1.25 MG; Start 01/30/17 at 09:00 MARAH SALGADO MD Jan 30, 2017 12:12
[2017-01-30 14:00] VITALS: BP 142/70; PULSE 81
[2017-01-30 19:51] VITALS: BP 124/62; RESP 20
[2017-01-30] MEDS: LATANOPROST 0.005% 2.5 ML OPH BOTH EYES SCH (20:13)
[2017-01-30] MEDS: FAMOTIDINE 20 MG TAB PO SCH (20:14)
[2017-01-30] MEDS: LITHIUM CARBONATE 150 MG CAP PO SCH (20:14)
[2017-01-31 06:10] LABS: CALCIUM 9.8 mg/dl (8.4-10.2); CREATININE 0.75 mg/dl (0.44-1.00); POTASSIUM 4.6 mmol/L (3.5-5.1)
[2017-01-31 07:24] VITALS: BP 123/58; RESP 20
[2017-01-31] MEDS: OLANZAPINE 2.5 MG TAB PO SCH (09:21)
[2017-01-31] MEDS: CITALOPRAM 20 MG TAB PO SCH (09:22)
[2017-01-31] MEDS: ENOXAPARIN 40 MG/0.4 ML SYG SC SCH (09:27)
--- NOTE | 2017-01-31 12:21 | PN ---
Date/Time of Note Date/Time of Note DATE: 01/31/17 TIME: 12:20 Assessment/Plan VTE Prophylaxis VTE Prophylaxis Intervention: SCD's Lines/Catheters IV Catheter Type (from Nrsg): port Urinary Cath still in place: No Assessment/Plan Assessment/Plan 76 yo F with stage 3 breast Ca on chemo admitted for diarrhea, hypokalemia, confusion. Suspect diarrhea iatrogenic from chemo regimen and confusion 2/2 electrolyte derangement and dehydration. Dehydration, diarrhea, electrolyte derangement resolved. Now with delirium/toxic metabolic encephalopathy which is slowly resolving. PLAN #encephalopathy/delirium: NH3, TSH, [place] nl. Head CT on admission nl -repeat UA also pristine -called pt's home pharmacy and psych meds doses verified though pt recently provided option of decreasing Zyprexa to 0.5 tabs daily-->decrease made 6.30 #hypernatremia: resolved. stopped IVFs #diarrhea: resolved #hypokalemia: replete PRN #anxiety: cont home meds dispo: SW consult for HH , PT eval, OT eval general diet likely discharge to SNF in 1-2 days pending OT eval DVT prophx FULL CODE Subjective 24 Hr Interval Summary Free Text/Dictation Pt sleeping comfortably this AM. Per notes appears pt and daughter requesting SNF at discharge Exam/Review of Systems Vital Signs Vitals Vital Signs Date Time Temp Pulse Resp B/P Pulse Ox O2 Delivery O2 Flow Rate FiO2 01/31/17 07:24 98.3 87 20 123/58 95 01/27/17 20:00 Room Air Intake and Output 01/30/17 01/30/17 01/31/17 15:00 23:00 07:00 Intake Total 820 ml 360 ml Balance 820 ml 360 ml Exam laying flat in bed resp non labored no gross abd distension no rashes no gross LE edema ChemP nl Results Result Diagram: 01/29/17 1605 01/31/17 0455 Results 24 hrs Laboratory Tests Test 01/31/17 04:55 Sodium Level 141 Potassium Level 4.6 Chloride Level 108 Carbon Dioxide Level 28 Anion Gap 10 Blood Urea Nitrogen 20 Creatinine 0.75 Glucose Level 109 Calcium Level 9.8 Medications Medications Current Medications Ondansetron HCl (Zofran Tab) 4 mg Q6H PRN PO NAUSEA AND/OR VOMITING; Start at 13:00 Ondansetron HCl (Zofran Inj) 4 mg Q6H PRN IV NAUSEA AND/OR VOMITING; Start at 13:00 Acetaminophen (Tylenol Tab) 650 mg Q6H PRN PO PAIN LEVEL 1-3 OR FEVER; Start at 13:00 Acetaminophen/ Hydrocodone Bitart ([place] (5/325)) 1 tab Q6H PRN PO MODERATE PAIN LEVEL 4-6; Start 01/26/17 at 13:00 Enoxaparin Sodium (Lovenox) 40 mg DAILY SC Last administered on 01/31/17 09:27 ; Admin Dose 40 MG; Start 01/27/17 at 09:00 Citalopram Hydrobromide (Celexa) 40 mg DAILY PO Last administered on 01/31/17 09:22; Admin Dose 40 MG; Start 01/27/17 at 09:00 Clonazepam (Klonopin) 0.5 mg QHS PRN PO ANXIETY Last administered on 01/26/17 20:40; Admin Dose 0.5 MG; Start 01/26/17 at 13:00 Famotidine (Pepcid) 20 mg QHS PO Last administered on 01/30/17 20:14; Admin Dose 20 MG; Start 01/26/17 at 21:00 Latanoprost (Xalatan) 1 drop QHS BOTH EYES Last administered on 01/30/17 20:13 ; Admin Dose 1 DROP; Start 01/26/17 at 21:00 [place] Carbonate ([place] Carbonate) 450 mg QHS PO Last administered on 20:14; Admin Dose 450 MG; Start 01/26/17 at 21:00 Ondansetron HCl (Zofran Tab) 8 mg Q8 PRN PO NAUSEA AND/OR VOMITING; Start 01/26 at 13:00 Prochlorperazine (Compazine) 5 mg Q6 PRN PO NAUSEA; Start 01/26/17 at 13:00 Olanzapine (Zyprexa) 1.25 mg DAILY PO Last administered on 01/31/17 09:21; Admin Dose 1.25 MG; Start 01/30/17 at 09:00 MARAH SALGADO MD Jan 31, 2017 12:21
[2017-01-31 20:30] VITALS: BP 143/68; RESP 18
[2017-01-31] MEDS: clonAZEPAM 0.5 MG TAB PO PRN (20:37)
[2017-01-31] MEDS: FAMOTIDINE 20 MG TAB PO SCH (20:37)
[2017-01-31] MEDS: LATANOPROST 0.005% 2.5 ML OPH BOTH EYES SCH (20:37)
[2017-01-31] MEDS: LITHIUM CARBONATE 150 MG CAP PO SCH (22:37)
[2017-02-01 05:49] LABS: BASOPHILS % 0.2 % (0.0-2.0); EOSINOPHILS # 0.9 10^3/ul (0.0-0.5); EOSINOPHILS % 7.9 % (0.0-7.0); HEMATOCRIT 36.9 % (37.0-47.0); HEMOGLOBIN 12.2 g/dl (12.0-16.0); LYMPHOCYTES # 1.6 10^3/ul (0.8-2.9); LYMPHOCYTES % 14.4 % (15.0-51.0); MEAN CORPUSCULAR HEMOGLOBIN 29.7 pg (29.0-33.0); MEAN CORPUSCULAR HGB CONC 33.1 g/dl (32.0-37.0); MEAN CORPUSCULAR VOLUME 89.8 fl (82.0-101.0); MEAN PLATELET VOLUME 10.7 fl (7.4-10.4); MONOCYTE # 0.9 10^3/ul (0.3-0.9); NEUTROPHIL # 7.5 10^3/ul (1.6-7.5); NEUTROPHILS % 68.9 % (39.0-77.0); PLATELET COUNT 172 10^3/UL (140-415); RED BLOOD COUNT 4.11 10^6/ul (4.20-5.40); RED CELL DISTRIBUTION WIDTH 14.7 % (11.5-14.5); WHITE BLOOD COUNT 10.8 10^3/ul (4.8-10.8)
[2017-02-01 05:58] LABS: ADD SCAN DIFF NO
[2017-02-01 06:03] LABS: CALCIUM 9.1 mg/dl (8.4-10.2); CREATININE 0.8 mg/dl (0.44-1.00); POTASSIUM 4.5 mmol/L (3.5-5.1)
[2017-02-01 07:35] VITALS: BP 132/61; RESP 19
[2017-02-01] MEDS: CITALOPRAM 20 MG TAB PO SCH (08:18)
[2017-02-01] MEDS: OLANZAPINE 2.5 MG TAB PO SCH (08:18)
[2017-02-01] MEDS: ENOXAPARIN 40 MG/0.4 ML SYG SC SCH (08:23)
[2017-02-01 10:20] VITALS: BP 170/78
--- NOTE | 2017-02-01 10:26 | PN ---
Date/Time of Note Date/Time of Note DATE: 02/01/17 TIME: 10:25 Assessment/Plan VTE Prophylaxis VTE Prophylaxis Intervention: SCD's Lines/Catheters IV [facility] PORT A CATH Urinary Cath still in place: No Assessment/Plan Assessment/Plan 76 yo F with stage 3 breast Ca on chemo admitted for diarrhea, hypokalemia, confusion. Suspect diarrhea iatrogenic from chemo regimen and confusion 2/2 electrolyte derangement and dehydration. Dehydration, diarrhea, electrolyte derangement resolved. Now with delirium/toxic metabolic encephalopathy which is slowly resolving. PLAN #encephalopathy/delirium: slowly resolving -NH3, TSH, [place] nl. Head CT on admission nl; UAs x 2 pristine -called pt's home pharmacy and psych meds doses verified though pt recently provided option of decreasing Zyprexa to 0.5 tabs daily-->decrease made 6.30 #hypernatremia: resolved. stopped IVFs #diarrhea: resolved #hypokalemia: replete PRN #anxiety: cont home meds general diet DVT prophx dispo: CM following, hopefully home with HH in 1-2 days Subjective 24 Hr Interval Summary Free Text/Dictation Pt seen at bedside with daughter and case maker. Per daughter pt slowly appears to be getting back to baseline mentation. On my eval, pt still did not know what year it was but was able to recall the name of the president. Exam/Review of Systems Vital Signs Vitals Vital Signs Date Time Temp Pulse Resp B/P Pulse Ox O2 Delivery O2 Flow Rate FiO2 02/01/17 07:35 98.5 76 19 132/61 98 Intake and Output 01/31/17 01/31/17 02/01/17 15:00 23:00 07:00 Intake Total 450 ml 300 ml Balance 450 ml 300 ml Exam nad, sitting up in bed, wearing glasses no mrg lungs clear abd soft no rashes Results Result Diagram: 02/01/17 0420 02/01/17 0420 Results 24 hrs Laboratory Tests Test 02/01/17 04:20 White Blood Count 10.8 Red Blood Count 4.11 L Hemoglobin 12.2 Hematocrit 36.9 L Mean Corpuscular Volume 89.8 Mean Corpuscular Hemoglobin 29.7 Mean Corpuscular Hemoglobin Concent 33.1 Red Cell Distribution Width 14.7 H Platelet Count 172 Mean Platelet Volume 10.7 H Neutrophils % 68.9 Lymphocytes % 14.4 L Monocytes % 8.0 Eosinophils % 7.9 H Basophils % 0.2 Nucleated Red Blood Cells % 0.0 Neutrophils # 7.5 Lymphocytes # 1.6 Monocytes # 0.9 Eosinophils # 0.9 H Basophils # 0.0 Nucleated Red Blood Cells # 0.0 Sodium Level 139 Potassium Level 4.5 Chloride Level 106 Carbon Dioxide Level 28 Anion Gap 10 Blood Urea Nitrogen 19 Creatinine 0.80 Glucose Level 103 Calcium Level 9.1 Medications Medications Current Medications Ondansetron HCl (Zofran Tab) 4 mg Q6H PRN PO NAUSEA AND/OR VOMITING; Start at 13:00 Ondansetron HCl (Zofran Inj) 4 mg Q6H PRN IV NAUSEA AND/OR VOMITING; Start at 13:00 Acetaminophen (Tylenol Tab) 650 mg Q6H PRN PO PAIN LEVEL 1-3 OR FEVER Last administered on 02/01/17 08:19; Admin Dose 650 MG; Start 01/26/17 at 13:00 Acetaminophen/ Hydrocodone Bitart ([place] (5/325)) 1 tab Q6H PRN PO MODERATE PAIN LEVEL 4-6; Start 01/26/17 at 13:00 Enoxaparin Sodium (Lovenox) 40 mg DAILY SC Last administered on 02/01/17 08:23 ; Admin Dose 40 MG; Start 01/27/17 at 09:00 Citalopram Hydrobromide (Celexa) 40 mg DAILY PO Last administered on 02/01/17 08:18; Admin Dose 40 MG; Start 01/27/17 at 09:00 Clonazepam (Klonopin) 0.5 mg QHS PRN PO ANXIETY Last administered on 01/31/17 20:37; Admin Dose 0.5 MG; Start 01/26/17 at 13:00 Famotidine (Pepcid) 20 mg QHS PO Last administered on 01/31/17 20:37; Admin Dose 20 MG; Start 01/26/17 at 21:00 Latanoprost (Xalatan) 1 drop QHS BOTH EYES Last administered on 01/31/17 20:37 ; Admin Dose 1 DROP; Start 01/26/17 at 21:00 [place] Carbonate ([place] Carbonate) 450 mg QHS PO Last administered on 22:37; Admin Dose 450 MG; Start 01/26/17 at 21:00 Ondansetron HCl (Zofran Tab) 8 mg Q8 PRN PO NAUSEA AND/OR VOMITING; Start 01/26 at 13:00 Prochlorperazine (Compazine) 5 mg Q6 PRN PO NAUSEA; Start 01/26/17 at 13:00 Olanzapine (Zyprexa) 1.25 mg DAILY PO Last administered on 02/01/17 08:18; Admin Dose 1.25 MG; Start 01/30/17 at 09:00 MARAH SALGADO MD Feb 01, 2017 10:26
[2017-02-01 19:26] VITALS: BP 135/61; RESP 18
[2017-02-01] MEDS: FAMOTIDINE 20 MG TAB PO SCH (20:49)
[2017-02-01] MEDS: LATANOPROST 0.005% 2.5 ML OPH BOTH EYES SCH (20:49)
[2017-02-01] MEDS: LITHIUM CARBONATE 150 MG CAP PO SCH (20:49)
[2017-02-01] MEDS: clonAZEPAM 0.5 MG TAB PO PRN (20:49)
[2017-02-02 07:27] LABS: CALCIUM 9.2 mg/dl (8.4-10.2); CREATININE 0.83 mg/dl (0.44-1.00); POTASSIUM 4.6 mmol/L (3.5-5.1)
[2017-02-02 08:07] VITALS: BP 136/64; RESP 19
[2017-02-02] MEDS: OLANZAPINE 2.5 MG TAB PO SCH (09:21)
[2017-02-02] MEDS: CITALOPRAM 20 MG TAB PO SCH (09:21)
[2017-02-02] MEDS: ENOXAPARIN 40 MG/0.4 ML SYG SC SCH (09:22)
--- NOTE | 2017-02-02 13:59 | PN ---
Date/Time of Note Date/Time of Note DATE: 02/02/17 TIME: 13:58 Assessment/Plan VTE Prophylaxis VTE Prophylaxis Intervention: LMWH Lines/Catheters IV [facility]ter Type (from [facility]): PORT A CATH Urinary Cath still in place: No Assessment/Plan Chief Complaint/Hosp Course 1. Acute encephalopathy. Most probably toxic encephalopathy. Improving. 2. Diarrhea. Stool studies negative except for a staph aureus colonization. 3. Hypokalemia. Resolved. 4. Stage III breast cancer currently on chemotherapy. 5. Depression. Continue antidepressants. 6. Anxiety. Continue anxiolytics. 7. Fluids, electrolytes, and nutrition. Regular diet. 8. DVT prophylaxis. Subcutaneous Lovenox. 9. Gastrointestinal prophylaxis. Histamine 2 receptor blockers. 10. Plan. Patient continues to have periods of confusion. The patient was also debilitated. Family agreeing on transfer to a [place] [facility] facility. Case discussed with Dr. Zeng. Problems: Subjective 24 Hr Interval Summary Free Text/Dictation Patient remains less anxious. Exam/Review of Systems Vital Signs Vitals Vital Signs Date Time Temp Pulse Resp B/P Pulse Ox O2 Delivery O2 Flow Rate FiO2 02/02/17 08:07 98.5 85 19 136/64 99 Intake and Output 02/01/17 02/01/17 02/02/17 15:00 23:00 07:00 Intake Total 720 ml 480 ml Balance 720 ml 480 ml Exam General: Adequately build 76 year-old female lying in bed in no apparent distress. HEENT: Normocephalic, atraumatic. Eyes: Anicteric sclerae, conjunctivae clear. ENT: Nasal septum midline, oral mucosa moist. Neck supple, no JVD noticed. Respiratory: Bilaterally clear breath sounds. No use of accessory muscles of respiration. No adventitious breath sounds. Cardiovascular: S1, S2 heard. No murmurs or gallops. Abdomen: Soft, nontender, and nondistended. Bowel sounds positive in all 4 quadrants. Genitourinary: Deferred. Extremities: No cyanosis, no clubbing, no edema. Peripheral pulses palpable. Neurologic: Cranial nerves II through XII grossly intact. The patient is awake and alert. Oriented 2. Skin: Normal skin turgor. No skin rashes. Results Result Diagram: 02/01/17 0420 02/02/17 0449 Results 24 hrs Laboratory Tests Test 02/02/17 04:49 Sodium Level 138 Potassium Level 4.6 Chloride Level 106 Carbon Dioxide Level 26 Anion Gap 11 Blood Urea Nitrogen 22 H Creatinine 0.83 Glucose Level 115 Calcium Level 9.2 Medications Medications Current Medications Ondansetron HCl (Zofran Tab) 4 mg Q6H PRN PO NAUSEA AND/OR VOMITING; Start at 13:00 Ondansetron HCl (Zofran Inj) 4 mg Q6H PRN IV NAUSEA AND/OR VOMITING; Start at 13:00 Acetaminophen (Tylenol Tab) 650 mg Q6H PRN PO PAIN LEVEL 1-3 OR FEVER Last administered on 02/01/17 08:19; Admin Dose 650 MG; Start 01/26/17 at 13:00 Acetaminophen/ Hydrocodone Bitart ([place] (5/325)) 1 tab Q6H PRN PO MODERATE PAIN LEVEL 4-6; Start 01/26/17 at 13:00 Enoxaparin Sodium (Lovenox) 40 mg DAILY SC Last administered on 02/02/17 09:22 ; Admin Dose 40 MG; Start 01/27/17 at 09:00 Citalopram Hydrobromide (Celexa) 40 mg DAILY PO Last administered on 02/02/17 09:21; Admin Dose 40 MG; Start 01/27/17 at 09:00 Clonazepam (Klonopin) 0.5 mg QHS PRN PO ANXIETY Last administered on 02/01/17 20:49; Admin Dose 0.5 MG; Start 01/26/17 at 13:00 Famotidine (Pepcid) 20 mg QHS PO Last administered on 02/01/17 20:49; Admin Dose 20 MG; Start 01/26/17 at 21:00 Latanoprost (Xalatan) 1 drop QHS BOTH EYES Last administered on 02/01/17 20:49 ; Admin Dose 1 DROP; Start 01/26/17 at 21:00 [place] Carbonate ([place] Carbonate) 450 mg QHS PO Last administered on 20:49; Admin Dose 450 MG; Start 01/26/17 at 21:00 Ondansetron HCl (Zofran Tab) 8 mg Q8 PRN PO NAUSEA AND/OR VOMITING; Start 01/26 at 13:00 Prochlorperazine (Compazine) 5 mg Q6 PRN PO NAUSEA; Start 01/26/17 at 13:00 Olanzapine (Zyprexa) 1.25 mg DAILY PO Last administered on 02/02/17t 09:21; Admin Dose 1.25 MG; Start 01/30/17 at 09:00 SANTANA DIAZ NP Feb 02, 2017 13:58
[2017-02-02 19:30] VITALS: BP 134/63; RESP 18
[2017-02-02 19:59] VITALS: BP 134/63; PULSE 74; RESP 18
[2017-02-02] MEDS: LATANOPROST 0.005% 2.5 ML OPH BOTH EYES SCH (20:09)
[2017-02-02] MEDS: clonAZEPAM 0.5 MG TAB PO PRN (20:10)
[2017-02-02] MEDS: LITHIUM CARBONATE 150 MG CAP PO SCH (20:10)
[2017-02-02] MEDS: FAMOTIDINE 20 MG TAB PO SCH (20:10)
[2017-02-03 05:13] LABS: ADD SCAN DIFF NO
[2017-02-03 05:22] LABS: BASOPHILS % 0.1 % (0.0-2.0); EOSINOPHILS # 0.6 10^3/ul (0.0-0.5); EOSINOPHILS % 8.1 % (0.0-7.0); HEMATOCRIT 40.5 % (37.0-47.0); HEMOGLOBIN 12.8 g/dl (12.0-16.0); LYMPHOCYTES # 1.5 10^3/ul (0.8-2.9); LYMPHOCYTES % 19.1 % (15.0-51.0); MEAN CORPUSCULAR HEMOGLOBIN 28.5 pg (29.0-33.0); MEAN CORPUSCULAR HGB CONC 31.6 g/dl (32.0-37.0); MEAN CORPUSCULAR VOLUME 90.2 fl (82.0-101.0); MEAN PLATELET VOLUME 9.7 fl (7.4-10.4); MONOCYTE # 0.7 10^3/ul (0.3-0.9); MONOCYTES % 8.6 % (0.0-11.0); NEUTROPHILS % 63.3 % (39.0-77.0); PLATELET COUNT 237 10^3/UL (140-415); RED BLOOD COUNT 4.49 10^6/ul (4.20-5.40); RED CELL DISTRIBUTION WIDTH 14.6 % (11.5-14.5); WHITE BLOOD COUNT 7.9 10^3/ul (4.8-10.8)
[2017-02-03 05:52] LABS: MAGNESIUM 2.2 mg/dl (1.7-2.5); PHOSPHORUS 3.5 mg/dl (2.5-4.9)
[2017-02-03 05:59] LABS: CALCIUM 9.7 mg/dl (8.4-10.2); CREATININE 0.71 mg/dl (0.44-1.00); POTASSIUM 4.2 mmol/L (3.5-5.1)
[2017-02-03 08:03] VITALS: BP 137/63; RESP 19
[2017-02-03] MEDS: ENOXAPARIN 40 MG/0.4 ML SYG SC SCH (08:43)
[2017-02-03] MEDS: CITALOPRAM 20 MG TAB PO SCH (08:44)
[2017-02-03] MEDS: OLANZAPINE 2.5 MG TAB PO SCH (08:44)
--- NOTE | 2017-02-03 10:35 | PDOCDIS ---
Discharge Instructions DIAGNOSIS Discharge Diagnosis Acute encephalopathy. CONDITION Patient Condition: Stable HOME CARE INSTRUCTIONS: Diet Instructions: RegularSpecial Diet: regular OTHER ORDERS: Other Orders: 1. Medications as per medication reconciliation. 2. Activities with assist. 3. Regular diet as tolerated. 4. Follow-up with oncology as scheduled. SANTANA DIAZ NP Feb 03, 2017 10:35
--- NOTE | 2017-02-03 10:36 | DS ---
Date/Time of Note Date/Time of Note DATE: 02/03/17 TIME: 10:36 Discharge Summary Admission/Discharge Info Admit Date/Time Jan 26, 2017 at 11:07 Discharge Date/Time Discharge Diagnosis 1. Acute encephalopathy. 2. Diarrhea. Resolved. 3. Hypokalemia. Resolved. 4. Stage III breast cancer currently on chemotherapy. 5. Depression. 6. Anxiety. Patient Condition: Stable Procedures Brain CT IMPRESSION: Age-appropriate atrophy. Mild white matter disease compatible with chronic small vessel ischemia. No intracranial hemorrhage or mass. CXR IMPRESSION: No acute cardiopulmonary disease. Mild atherosclerotic aortic calcification Right IJ Port-A-Cath Hx of Present Illness 76 yo F with stage 3 breast ca currently on chemo presents with c/o altered mental status and falling at home x 1 day in the setting of several weeks of diarrhea. Per discussion with family, pt has been having diarrhea since her chemo started. No dark stool or blood in stool. For the past 2 days has been taking in less PO. No nausea or vomiting. No chest pain or SOB. The patient's oncologist Dr Meg Nelson ([phone]) who stated this was a common side effect of the Pertuzumab element of pt's chemo regimen. Hospital Course The patient was noticed to have significant hypokalemia on admission, most probably secondary to frequent diarrhea. The patient had a potassium level of 2.0. Consequently, the patient was admitted to inpatient telemetry floor. The patient's potassium was repleted. The patient underwent a brain CT scan that was negative for any acute intracranial findings. Stool studies were sent and that was negative for any C. difficile colitis. Patient's feces showed colonization with Staphylococcus aureus. The patient's mental status improved with improvement in the patient's electrolytes. Patient has underlying stage III breast cancer on chemotherapy. The patient also has underlying depression, anxiety, and mood disorder. The patient was maintained on her psych medications. The patient was seen and evaluated by physical therapy. The patient was not a safe discharge home. Hence the patient's family agreed on transfer the patient to a detention facility for a short period of time before the patient can be discharged home. The patient had a stable hospital course. The patient is stable to be discharged from the hospital. Discharge Disposition 1. Medications as per medication reconciliation. 2. Activities with assist. 3. Regular diet as tolerated. 4. Follow-up with oncology as scheduled. Case discussed with Dr. Zeng. Home Meds Reported Medications Famotidine* (Famotidine*) 20 Mg Tablet, 20 MG PO QHS, #30 TAB 01/26/17 Diphenoxylate Hcl-Atropine* (Lomotil*) 5 Ml Soln, 5 ML PO Q6H Y for DIARRHEA, ML 01/26/17 Dexamethasone* (Dexamethasone*) 4 Mg Tablet, 4 MG PO BID Y for chemo nausea, TAB 01/26/17 Latanoprost (Xalatan) 2.5 Ml Drops, 1 DROP BOTH EYES QHS, #1 BOTTLE 01/26/17 Prochlorperazine* (Prochlorperazine*) 5 Mg Tablet, 5 MG PO Q6 Y for NAUSEA, TAB 01/26/17 Maize Carbonate* (Maize Carbonate*) 150 Mg Capsule, 450 MG PO QHS, CAP 01/26/17 Olanzapine* (Zyprexa*) 2.5 Mg Tablet, 2.5 MG PO DAILY, #30 TAB 01/26/17 Clonazepam* (Clonazepam*) 0.5 Mg Tablet, 0.5 MG PO QHS Y for ANXIETY, TAB 01/26/17 Ondansetron Hcl* (Zofran*) 8 Mg Tab, 8 MG PO Q8 Y for NAUSEA AND/OR VOMITING, TAB Aleternating dose during and after chemo 01/26/17 Citalopram Hydrobromide* (Citalopram Hydrobromide*) 40 Mg Tablet, 40 MG PO DAILY , #30 TAB 01/26/17 Follow-up Plan Patient will follow up with her oncologist as scheduled. Primary Care Provider Chapis Alberto Time spent on discharge: > 30 minutes Pending Labs Laboratory Tests Test 02/03/17 04:35 White Blood Count 7.910^3/ul (4.8-10.8) Red Blood Count 4.4910^6/ul (4.20-5.40) Hemoglobin 12.8g/dl (12.0-16.0) Hematocrit 40.5% (37.0-47.0) Mean Corpuscular Volume 90.2fl (82.0-101.0) Mean Corpuscular Hemoglobin 28.5pg (29.0-33.0) Mean Corpuscular Hemoglobin Concent 31.6g/dl (32.0-37.0) Red Cell Distribution Width 14.6% (11.5-14.5) Platelet Count 80029^3/UL (140-415) Mean Platelet Volume 9.7fl (7.4-10.4) Neutrophils % 63.3% (39.0-77.0) Lymphocytes % 19.1% (15.0-51.0) Monocytes % 8.6% (0.0-11.0) Eosinophils % 8.1% (0.0-7.0) Basophils % 0.1% (0.0-2.0) Nucleated Red Blood Cells % 0.0/100WBC (0.0-0.0) Neutrophils # 5.010^3/ul (1.6-7.5) Lymphocytes # 1.510^3/ul (0.8-2.9) Monocytes # 0.710^3/ul (0.3-0.9) Eosinophils # 0.610^3/ul (0.0-0.5) Basophils # 0.010^3/ul (0.0-0.1) Nucleated Red Blood Cells # 0.010^3/ul (0.0-0.0) Sodium Level 142mmol/L (135-144) Potassium Level 4.2mmol/L (3.5-5.1) Chloride Level 104mmol/L (97-110) Carbon Dioxide Level 26mmol/L (21-31) Anion Gap 16 (8-16) Blood Urea Nitrogen 22mg/dl (7-20) Creatinine 0.71mg/dl (0.44-1.00) Glucose Level 101mg/dl (70-220) Calcium Level 9.7mg/dl (8.4-10.2) Phosphorus Level 3.5mg/dl (2.5-4.9) Magnesium Level 2.2mg/dl (1.7-2.5) SANTANA DIAZ NP Feb 03, 2017 10:36
[2017-02-03] MEDS ORDERED: HEPARIN (100 UNITS/ML) 5 ML SYG CATHETER ONE (14:30)
== END 2017-02-03 16:00 | DRG 597 ==
LOC: E/R 09:37 → MS4 11:07 → MS1 01-27 22:27
PROVIDERS: ADMIT Family Medicine; ATTEND Family Medicine
DX: C50.919 Malignant neoplasm of unspecified site of unspecified female breast (principal); G92 Toxic encephalopathy; E87.0 Hyperosmolality and hypernatremia; K52.1 Toxic gastroenteritis and colitis; E86.0 Dehydration; F39 Unspecified mood [affective] disorder; E87.6 Hypokalemia; F41.9 Anxiety disorder, unspecified; T45.1X5A Adverse effect of antineoplastic and immunosuppressive drugs, initial encounter; R53.81 Other malaise; Z91.81 History of falling; Z22.321 Carrier or suspected carrier of Methicillin susceptible Staphylococcus aureus
CPT/HCPCS: 36415; 70450; 71010; 80048; 80053; 80178; 81001; 81003; 82140; 83605; 83735; 83935; 84100; 84300; 84443; 84484; 85025; 85610; 85730; 87040; 87045; 87075; 87086; 92610; 93005; 96365; 96366; 96368; 97116; 97162; 97167; 97530; A4310; J0692; J1642; J1650; J3370; J3480; J7030; J7070